=== PATIENT | female | born 1995 | race Caucasian/White ===

== ENCOUNTER 2020-02-04 14:05 | Emergency (ER) | payer BC ==
[~2020-02-04] VITALS: Ht 175.3 cm; Wt 140.0 kg
[2020-02-04] MEDS ORDERED: INDERAL10 MG PO (14:19)
[2020-02-04] MEDS ORDERED: STOOL SOFTENER100 MG PO (14:20)
[2020-02-04 15:16] LABS: HEMATOCRIT 42.4 % (37.0-47.0); HEMOGLOBIN 13.3 g/dl (12.0-16.0); IMMATURE GRANULOCYTES 0.2 % (0.0-5.0); MEAN CELL VOLUME 90.4 fL CALC (80.0-100.0); MEAN CORPUSCULAR HGB 28.4 pG CALC (26.0-32.0); MEAN CORPUSCULAR HGB CONC 31.4 g/dL CAL (32.0-36.0); RED BLOOD COUNT 4.69 mill/uL (4.20-5.60); RED CELL DISTRI WIDTH 13.2 % (11.5-15.5)
[2020-02-04 15:17] LABS: URINE BILIRUBIN - DIPSTICK NEGATIVE (NEGATIVE); URINE BLOOD DIPSTICK NEGATIVE (NEGATIVE); URINE COLOR YELLOW; URINE GLUCOSE - DIPSTICK NEGATIVE (NEGATIVE); URINE KETONE NEGATIVE (NEGATIVE); URINE LEUK ESTERASE NEGATIVE (NEGATIVE); URINE NITRITE - DIPSTICK NEGATIVE (Negative); URINE PROTEIN - DIPSTICK NEGATIVE (NEG-TRACE); URINE UROBILINOGEN - DIPSTICK 0.2 E.U./dL (0.2)
[2020-02-04 15:33] LABS: ALBUMIN 4.5 g/dL (3.2-5.0); ALKALINE PHOSPHATASE 99 u/l (38-126); ANION GAP 10 (6-22 (CALC)); BILIRUBIN, TOTAL 0.3 mg/dL (0.0-1.4); BUN 4 mg/dL (7-17); BUN/CREATININE RATIO 6 (12-20 (CALC)); CARBON DIOXIDE 27 mmol/l (22-30); CHLORIDE 106 mmol/l (95-108); CREATININE 0.7 mg/dL (0.5-1.0); GFR > 60 ML/MIN (>=60 (CALC)); GFR FOR AFR.AMER. > 60 ML/MIN (>=60 (CALC)); POTASSIUM 4.2 mmol/l (3.5-5.1); PROTHROMBIN TIME 9.9 SECONDS (9.0-12.5); SGOT/AST 36 u/l (14-36); SODIUM 138 mmol/l (137-146)
[2020-02-04] MEDS ORDERED: ANUCORT-HC25 MG RE (17:31)
[2020-02-04 17:42] VITALS: BP 118/57
[2020-03-19] MEDS ORDERED: ALBUTEROL SUL0.083 % IN (08:55)
[2020-03-19] MEDS ORDERED: VITAMIN C500 M6 PO (08:55)
[2020-03-19] MEDS ORDERED: DOK100 MG PO (08:55)
[2020-03-19] MEDS ORDERED: PROAIR HFA IN (08:56)
[2020-03-19] MEDS ORDERED: SERTRALINE50 MG PO (08:56)
[2020-03-19] MEDS ORDERED: FERROUS SULFAT325 MG PO (08:56)
[2020-03-30] MEDS ORDERED: WELLBUTRIN XL300 MG PO (07:24)
[2020-03-30] MEDS ORDERED: PROPANOLOL (11:00)
== END 2020-02-04 17:42 | disposition home or self-care (01) | DRG 379 ==
LOC: ED 14:05
PROVIDERS: Student in an Organized Health Care Education/Training Program
DX: K62.5 Hemorrhage of anus and rectum (principal); K64.4 Residual hemorrhoidal skin tags; K58.9 Irritable bowel syndrome, unspecified; Z80.0 Family history of malignant neoplasm of digestive organs
CPT/HCPCS: Q9967

== ENCOUNTER 2020-05-04 18:37 | Emergency (ER) | payer BC ==
[~2020-05-04] VITALS: Ht 175.3 cm; Wt 140.0 kg
[~2020-05-04 18:37] MED LIST: ALBUTEROL SUL0.083 % IN; ANUCORT-HC25 MG RE; DOK100 MG PO; FERROUS SULFAT325 MG PO; INDERAL10 MG PO; PROAIR HFA IN; PROPANOLOL; SERTRALINE50 MG PO; STOOL SOFTENER100 MG PO; VITAMIN C500 M6 PO; WELLBUTRIN XL300 MG PO
[2020-05-04 19:53] VITALS: BP 116/69
[2020-05-04] MEDS ORDERED: INDERAL 40MG TA40 MG PO (19:59)
== END 2020-05-04 19:53 | disposition home or self-care (01) | DRG 605 ==
LOC: ED 18:37
DX: S90.31XA Contusion of right foot, initial encounter (principal); J45.909 Unspecified asthma, uncomplicated; F41.9 Anxiety disorder, unspecified; F32.9 Major depressive disorder, single episode, unspecified; F17.200 Nicotine dependence, unspecified, uncomplicated; W20.8XXA Other cause of strike by thrown, projected or falling object, initial encounter; Y92.009 Unspecified place in unspecified non-institutional (private) residence as the place of occurrence of the external cause

== ENCOUNTER 2022-03-15 14:02 | Emergency (ER) | payer BC ==
[~2022-03-15] VITALS: Ht 175.3 cm; Wt 130.0 kg
[~2022-03-15 14:02] MED LIST changes: +INDERAL 40MG TA40 MG PO
[2022-03-15 14:31] VITALS: BP 179/49
[2022-03-15] MEDS ORDERED: PROAIR HFA108 MCG/AC PO (16:37)
[2022-03-15] MEDS ORDERED: PREDNISONE50 MG PO (16:37)
[2022-03-15] MEDS ORDERED: ZPAK PO (16:37)
[2022-03-15] MEDS ORDERED: PROVENTIL0.083 % IN (16:37)
[2022-03-15] MEDS ORDERED: AMOX/K CLAV875 M1 PO (16:38)
[2022-03-15 17:17] VITALS: BP 179/49
== END 2022-03-15 17:18 | disposition home or self-care (01) | DRG 203 ==
LOC: ED 14:02
DX: J40 Bronchitis, not specified as acute or chronic (principal); J06.9 Acute upper respiratory infection, unspecified; F41.9 Anxiety disorder, unspecified; F32.A Depression, unspecified; F17.200 Nicotine dependence, unspecified, uncomplicated; Z20.822 Contact with and (suspected) exposure to COVID-19

== ENCOUNTER 2022-06-18 19:30 | Emergency (ER) | payer BC ==
[~2022-06-18] VITALS: Ht 175.3 cm; Wt 130.9 kg
[2022-06-18] VITALS (10 sets, daily range): BP systolic 120–143; BP diastolic 74–95
[~2022-06-18 19:30] MED LIST changes: +AMOX/K CLAV875 M1 PO; +PREDNISONE50 MG PO; +PROAIR HFA108 MCG/AC PO; +PROVENTIL0.083 % IN; +ZPAK PO
[2022-06-18] MEDS ORDERED: ZITHROMAX Z-PA250 MG PO (21:05)
== END 2022-06-18 21:53 | disposition home or self-care (01) | DRG 831 ==
LOC: ED 19:30
DX: O98.512 Other viral diseases complicating pregnancy, second trimester (principal); U07.1 COVID-19; Z3A.16 16 weeks gestation of pregnancy

== ENCOUNTER 2023-08-01 17:15 | Emergency (ER) | payer OTHER ==
[~2023-08-01] VITALS: Ht 175.3 cm; Wt 140.0 kg
[~2023-08-01 17:15] MED LIST changes: +ZITHROMAX Z-PA250 MG PO
[2023-08-01 17:32] VITALS: BP 147/91
[2023-08-01] MEDS ORDERED: KEFLEX500 MG PO (18:02)
[2023-08-01 18:39] VITALS: BP 147/91
== END 2023-08-01 18:41 | disposition home or self-care (01) | DRG 601 ==
LOC: ED 17:15
DX: N61.0 Mastitis without abscess (principal)

== ENCOUNTER 2024-08-21 14:56 | Emergency (ER) | payer OTHER ==
[~2024-08-21] VITALS: Ht 175.3 cm; Wt 135.0 kg
[~2024-08-21 14:56] MED LIST changes: +KEFLEX500 MG PO
[2024-08-21 15:03] VITALS: BP 126/70
[2024-08-21] MEDS ORDERED: IPRATROPIUM-Albuterol 0.5MG-2.5MG/3 ML IN ONE (15:05)
[2024-08-21 15:48] VITALS: BP 108/54
[2024-08-21 16:01] VITALS: BP 89/47
[2024-08-21 16:16] VITALS: BP 103/47
[2024-08-21 16:31] VITALS: BP 86/45
[2024-08-21] MEDS ORDERED: PREDNISONE50 MG PO (16:35)
[2024-08-21] MEDS ORDERED: IPRATROPIU0.5 MG/3 M IN (16:35)
[2024-08-21] MEDS ORDERED: VENTOLIN HFA108 MCG IN (16:35)
[2024-08-21 16:37] VITALS: BP 103/57
== END 2024-08-21 16:40 | disposition home or self-care (01) | DRG 203 ==
LOC: ED 14:56
DX: J45.901 Unspecified asthma with (acute) exacerbation (principal); Z20.822 Contact with and (suspected) exposure to COVID-19
CPT/HCPCS: J1100